=== PATIENT | female | born 1990 | race Caucasian/White ===

== ENCOUNTER 2017-06-01 17:20 | Emergency (ER) | payer BC ==
[~2017-06-01] VITALS: Ht 152.4 cm; Wt 70.0 kg
[~2017-06-01 17:20] MED LIST: METR1GEL2 PV; TRAZ150T75 PO; [UNRECOGNIZED DRUG - CODE] PO
[2017-06-01 17:23] VITALS: BP 139/82; PULSE 94; RESP 16; TEMP 98.1; O2SAT 99
--- NOTE | 2017-06-01 17:25 | PD ---
Physical Exam Date Seen by Provider: Jun 01, 2017 Time Seen by Provider: 17:23 Narrative 26 year old female here for anxiety. Per patient really here for refills for gabapentin, effexor and abilify. Out of them for 1 week, feels more anxious since being off meds. Having some chest discomfort and very anxious in triage. Vitals are stable in triage. Awaiting bed placement. Data Data Last Documented VS Vital Signs Date Time Temp Pulse Resp B/P (MAP) Pulse Ox O2 Delivery O2 Flow Rate FiO2 06/01/17 17:23 98.1 94 16 139/82 (101) 99 Room Air [facility] Medical Record Reviewed: Yes Supervised Visit with SHAW: No Malcolm Hutchinson Jun 01, 2017 17:25
[2017-06-01] MEDS ORDERED: ARIP1TAB5 PO (19:41)
[2017-06-01] MEDS ORDERED: SERO200T PO (19:41)
[2017-06-01] MEDS ORDERED: GABA600T PO (19:41)
[2017-06-01] MEDS ORDERED: VENL75TA PO (19:41)
--- NOTE | 2017-06-01 19:45 | PD ---
HPI Chief Complaint: Medication Refill Request Time Seen by Provider: 19:31 Travel History International Travel<30 days: No Contact w/Intl Traveler<30days: No Traveled to known affect area: No History of Present Illness HPI 26-year-old white female presents to emergency department requesting a refill of her psych meds. Patient has a history of anxiety and bipolar. She states that she moved from [place] one month ago. She ran out of her medications one week ago. She went to [facility] today in the were not able to see her but rather gave her an appointment on Wednesday. She denies any suicidal homicidal ideation. Her symptoms are mild. No alleviating factors. Exacerbated by being out of her meds. No other medical complaints. [facility] Past Medical History Narrative Medical Anxiety, bipolar, left ectopic Bipolar Disorder: Yes Anxiety: Yes Depression: Yes Heart Rhythm Problems: Yes (murmur) Immunizations Current: Yes Seizures: Yes (drug induced) Tetanus Vaccination: Unknown Influenza Vaccination: No ?: Not LMP: 04/2017 Past Surgical History Narrative Surgical Left salpingo-oophorectomy Social History Alcohol Use: No Tobacco Use: Yes (pack) Substance Use: Yes (hx heroin abuse) Allergies-Medications (Allergen,Severity, Reaction): Coded Allergies: bupropion (Unverified Allergy, Severe, HANDS SWELL, 06/01/17) Reported Meds & Prescriptions Reported Meds & Active Scripts Active Seroquel (Quetiapine Fumarate) 200 Mg Tab 200 Mg PO HS 7 Days Effexor (Venlafaxine HCl) 75 Mg Tab 75 Mg PO DAILY 7 Days Gabapentin 600 Mg Tab 600 Mg PO TID 7 Days Abilify (Aripiprazole) 10 Mg Tab 10 Mg PO DAILY 7 Days Metrogel (Metronidazole) 1 % Gel 1 Applic PV DAILY Loseasonique (Levonorgestrel-Ethinyl Estradi) Tab 1 Tab PO DAILY Reported Trazodone Hcl Dividose (Trazodone Hcl) 150 Mg Tab 150 Mg PO DAILY Review of Systems Except as stated in HPI: all other systems reviewed are Neg General / Constitutional: No: Fever, Chills HENT: No: Lightheadedness, Sore Throat Cardiovascular: No: Chest Pain or Discomfort, Palpitations Respiratory: No: Cough, Shortness of Breath Genitourinary: No: Nocturia, Hematuria Physical Exam Narrative GENERAL: Well-developed, well-nourished in no acute distress. Nontoxic appearing. HEAD: Normocephalic, atraumatic. EYES: Pupils equal round and reactive. Extraocular motions intact. No scleral icterus. No injection or drainage. ENT: TMs clear without erythema. The external auditory canals clear. Nose: clear . Posterior pharynx is pink and moist. No tonsillar edema or exudate. Uvula midline. Airway patent. NECK: Trachea midline.Supple, nontender, moves head freely. No central bony tenderness or spasm. CARDIOVASCULAR: Regular rate and rhythm without murmurs, gallops, or rubs. RESPIRATORY: Clear to auscultation. Breath sounds equal bilaterally. No wheezes , rales, or rhonchi. GASTROINTESTINAL: Abdomen soft, non-tender, nondistended. No hepato-splenomegaly , or palpable masses. No guarding. EXTREMITIES: No clubbing, cyanosis, or edema. No joint tenderness, effusion, or edema noted. BACK: Nontender without deformity or crepitance. No flank tenderness. Data Data Last Documented VS Vital Signs Date Time Temp Pulse Resp B/P (MAP) Pulse Ox O2 Delivery O2 Flow Rate FiO2 06/01/17 17:23 98.1 94 16 139/82 (101) 99 Room Air Orders Orders Ed Discharge Order (06/01/17 19:42) [facility] Medical Decision Making Medical Screen Exam Complete: Yes Emergency Medical Condition: Yes Medical Record Reviewed: Yes Differential Diagnosis MDM: High Differential diagnoses: Schizophrenia, schizoaffective disorder, bipolar, anxiety, depression, adjustment reaction, mood disorder NOS, ODD, depressive disorder NOS, dementia, dementia with agitation, psychosis NOS, substance induced mood disorder, intermittent explosive disorder, Asperger syndrome, infection,electrolyte abnormality, malingering. Narrative Course This is bipolar, anxiety, med refill Diagnosis Primary Impression: bipolar Additional Impressions: anxiety Medication refill Patient Instructions: General Instructions Additional Instructions: Rest. Follow-up with Fili Hansen as scheduled on Wednesday. Medications as directed. Med/Other Pt SpecificInfo: Prescription(s) given Scripts Quetiapine (Seroquel) 200 Mg Tab 200 MG PO HS for 7 Days, #30 TAB 0 Refills Prov: Leodan Marion MD 06/01/17 Venlafaxine (Effexor) 75 Mg Tab 75 MG PO DAILY for 7 Days, #7 TAB 0 Refills Prov: Leodan Marion MD 06/01/17 Gabapentin (Gabapentin) 600 Mg Tab 600 MG PO TID for 7 Days, #90 TAB 0 Refills Prov: Leodan Marion MD 06/01/17 Aripiprazole (Abilify) 10 Mg Tab 10 MG PO DAILY for 7 Days, #7 TAB 0 Refills Prov: Leodan Marion MD 06/01/17 Disposition: 01 DISCHARGE HOME Condition: Stable Franki Rizzo Jun 01, 2017 19:45
== END 2017-06-01 19:55 | disposition home or self-care (01) ==
LOC: NEPK 17:20
DX: F31.9 Bipolar disorder, unspecified (principal); F17.210 Nicotine dependence, cigarettes, uncomplicated
CPT/HCPCS: 99281